=== PATIENT | male | born 1950 | race Caucasian/White ===

== ENCOUNTER 2021-07-17 04:19 | Inpatient (IN) ==
[2021-07-17] MEDS ORDERED: Naloxone 0.4 MG/ML INJ IVP PRN (06:56)
[2021-07-17] MEDS ORDERED: Ondansetron ODT 4 MG TAB.RAPDIS SL PRN (06:56)
[2021-07-17] MEDS: lisinopriL 20 MG TABLET PO SCH (10:21)
[2021-07-17] MEDS: Multivit/Ca/Min/Fe/FA 1 TAB TABLET PO SCH (10:21)
[2021-07-17] MEDS: *HR* Pioglitazone 30 MG TABLET PO SCH (10:21)
[2021-07-17] MEDS: amLODIPine 5 MG TABLET PO SCH (10:21)
[2021-07-17] MEDS: Melatonin 3 MG TABLET PO PRN (20:42)
[2021-07-18 05:22] LABS: Basophils % 0.8 %; Eosinophils # 0.5 K/mcL (0.0-0.6); Eosinophils % 9.1 %; Hematocrit 27.7 % (37.5-50.1); Hemoglobin 9.2 g/dL (12.9-16.9); Immature Granulocytes % 0.2 % (0-4); Lymphocytes # 0.8 K/mcL (0.6-4.6); Lymphocytes % 16.6 %; Mean Corpuscular HGB Conc 33.2 g/dL (31.6-35.5); Mean Corpuscular Hemoglobin 31.2 pg (28.0-33.3); Mean Corpuscular Volume 93.9 fL (83.0-100.0); Mean Platelet Volume 12.5 fL (9.4-12.4); Monocytes # 0.6 K/mcL (0.0-1.3); Monocytes % 11.4 %; Neutrophils # 3.1 K/mcL (1.6-8.9); Red Blood Count 2.95 M/mcL (4.19-5.50); Red Cell Distribution Width 14.3 % (11.5-14.5); Segmented Neutrophils % 61.9 %; White Blood Count 5.1 K/mcL (4.3-11.1)
[2021-07-18 05:38] LABS: Platelet Count 59 K/mcL (140-400)
[2021-07-18 05:39] LABS: Alanine Aminotransferase 26 Units/L (7-52); Albumin 3.4 g/dL (3.5-5.7); Albumin/Globulin Ratio 1.9 (1.1-2.2); Alkaline Phosphatase 41 Units/L (34-104); Aspartate Amino Transferase 31 Units/L (13-39); BUN/Creatinine Ratio 32 (6-26); Bilirubin,Total 1.2 mg/dL (0.3-1.0); Blood Urea Nitrogen 45 mg/dL (8-23); Calcium 8.9 mg/dL (8.6-10.3); Carbon Dioxide 25 mEq/L (23-29); Chloride 107 mEq/L (98-107); Globulin 1.8 g/dL (2.4-3.5); Glucose 118 mg/dL (70-105); Osmolality,Calculated 299 (280-300); Platelet Estimate Decreased (Normal); Potassium 4.7 mEq/L (3.5-5.1); Sodium 138 mEq/L (136-145); Total Protein 5.2 g/dL (6.4-8.9); eGFR For African Americans > 60 (> 60); eGFR For Non-African Americans 50 (> 60)
[2021-07-18] MEDS: lisinopriL 20 MG TABLET PO SCH (07:49)
[2021-07-18] MEDS: *HR* Pioglitazone 30 MG TABLET PO SCH (07:49)
[2021-07-18] MEDS: amLODIPine 5 MG TABLET PO SCH (07:49)
[2021-07-18] MEDS: Multivit/Ca/Min/Fe/FA 1 TAB TABLET PO SCH (07:49)
[2021-07-18] MEDS ORDERED: Trolamine Salicylate/Aloe Vera 85 APPL/85 GM TUBE TP PRN (12:11)
[2021-07-18] MEDS ORDERED: 0.9 % Sodium Chloride 1,000 ML IVC SCH (18:30)
[2021-07-18] MEDS: Melatonin 3 MG TABLET PO PRN (21:13)
[2021-07-19] MEDS ORDERED: *HR* OxyCODONE Immed Rel 5 MG TABLET PO ONE (02:03)
[2021-07-19 05:11] LABS: Basophils % 0.9 %; Eosinophils # 0.3 K/mcL (0.0-0.6); Eosinophils % 7.6 %; Hematocrit 26.2 % (37.5-50.1); Hemoglobin 8.8 g/dL (12.9-16.9); Immature Granulocytes % 0.2 % (0-4); Lymphocytes # 0.7 K/mcL (0.6-4.6); Mean Corpuscular HGB Conc 33.6 g/dL (31.6-35.5); Mean Corpuscular Hemoglobin 31.4 pg (28.0-33.3); Mean Corpuscular Volume 93.6 fL (83.0-100.0); Mean Platelet Volume 12.2 fL (9.4-12.4); Monocytes # 0.4 K/mcL (0.0-1.3); Monocytes % 9.6 %; Red Cell Distribution Width 14.2 % (11.5-14.5); Segmented Neutrophils % 66.7 %; White Blood Count 4.5 K/mcL (4.3-11.1)
[2021-07-19 05:16] LABS: Platelet Count 61 K/mcL (140-400)
[2021-07-19 05:17] LABS: Platelet Estimate Decreased (Normal)
[2021-07-19 05:24] LABS: BUN/Creatinine Ratio 32 (6-26); Blood Urea Nitrogen 42 mg/dL (8-23); Calcium 8.7 mg/dL (8.6-10.3); Carbon Dioxide 25 mEq/L (23-29); Chloride 109 mEq/L (98-107); Glucose 127 mg/dL (70-105); Osmolality,Calculated 300 (280-300); Potassium 4.8 mEq/L (3.5-5.1); Sodium 139 mEq/L (136-145); eGFR For African Americans > 60 (> 60); eGFR For Non-African Americans 54 (> 60)
[2021-07-19] MEDS ORDERED: *HR* Heparin 5,000 UNIT/ML VIAL SQ SCH (06:00)
[2021-07-19] MEDS ORDERED: *HR* Enoxaparin 40 MG/0.4 ML SYRINGE SQ SCH (06:00)
[2021-07-19] MEDS: Multivit/Ca/Min/Fe/FA 1 TAB TABLET PO SCH (08:15)
[2021-07-19] MEDS: amLODIPine 5 MG TABLET PO SCH (08:15)
[2021-07-19] MEDS: *HR* Pioglitazone 30 MG TABLET PO SCH (08:15)
[2021-07-19] MEDS: Melatonin 3 MG TABLET PO PRN (20:04)
[2021-07-20 05:38] LABS: Basophils % 0.8 %; Eosinophils # 0.3 K/mcL (0.0-0.6); Eosinophils % 7.8 %; Hematocrit 25.4 % (37.5-50.1); Hemoglobin 8.7 g/dL (12.9-16.9); Lymphocytes # 0.5 K/mcL (0.6-4.6); Lymphocytes % 13.6 %; Mean Corpuscular HGB Conc 34.3 g/dL (31.6-35.5); Mean Corpuscular Hemoglobin 31.5 pg (28.0-33.3); Mean Platelet Volume 12.7 fL (9.4-12.4); Monocytes # 0.3 K/mcL (0.0-1.3); Monocytes % 8.9 %; Neutrophils # 2.5 K/mcL (1.6-8.9); Red Blood Count 2.76 M/mcL (4.19-5.50); Red Cell Distribution Width 14.1 % (11.5-14.5); Segmented Neutrophils % 68.9 %; White Blood Count 3.6 K/mcL (4.3-11.1)
[2021-07-20 05:40] LABS: Platelet Count 58 K/mcL (140-400)
[2021-07-20 07:26] VITALS: BP 134/66; PULSE 81; RESP 17; TEMP 98.9; O2SAT 96
[2021-07-20] MEDS: lisinopriL 20 MG TABLET PO SCH (07:51)
[2021-07-20] MEDS: amLODIPine 5 MG TABLET PO SCH (07:51)
[2021-07-20] MEDS: *HR* Pioglitazone 30 MG TABLET PO SCH (07:51)
[2021-07-20] MEDS: Multivit/Ca/Min/Fe/FA 1 TAB TABLET PO SCH (07:51)
== END 2021-07-20 12:45 | disposition home or self-care (01) | DRG 554 ==
LOC: INPGRE
PROVIDERS: ADMIT Family Medicine; ATTEND Family Medicine